=== PATIENT | male | born 1940 | race Two or more races ===

== ENCOUNTER 2018-09-16 00:22 | Emergency (ER) | payer OTHER ==
[~2018-09-16] VITALS: Ht 160 cm; Wt 60.8 kg
[2018-09-16] MEDS ORDERED: [UNRECOGNIZED DRUG - OTHER] (00:41)
[2018-09-16] MEDS ORDERED: OMEPRAZOLE40 MG (00:42)
[2018-09-16] MEDS ORDERED: [UNRECOGNIZED DRUG - OTHER] (00:42)
[2018-09-16] MEDS ORDERED: [UNRECOGNIZED DRUG - OTHER] (00:42)
[2018-09-16] MEDS ORDERED: [UNRECOGNIZED DRUG - OTHER] (00:43)
== END 2018-09-16 04:32 | disposition home or self-care (01) ==
LOC: ER 00:22
DX: I16.0 Hypertensive urgency (principal); I10 Essential (primary) hypertension